=== PATIENT | male | born 1940 | race Caucasian/White ===

== ENCOUNTER 2017-12-27 11:32 | Emergency (ER) | payer MEDICARE, BC ==
[2017-12-27] MEDS ORDERED: Sodium Chloride 0.9% 1,000 ML IV ONE (11:46)
[2017-12-27] MEDS ORDERED: Sodium Chloride 0.9% 10 ML Syringe FLUSH PRN (11:46)
[2017-12-27 12:42] LABS: CHLORIDE,CL 104 mmol/L (98-107); SODIUM,NA 137 mmol/L (136-145)
--- NOTE | 2017-12-27 13:38 | EDM.PDOC ---
ED HPI GENERAL MEDICAL PROBLEM - General Chief Complaint: Head Injury Stated Complaint: DIZZINESS Time Seen by Provider: 12/27/17 11:41 Source of Information: Reports: Patient, Family History Limitations: Reports: No Limitations - History of Present Illness INITIAL COMMENTS - FREE TEXT/NARRATIVE: Patient is brought in by his after he may have passed out. He last remembers drinking prune juice and then the next he remembers he was on the floor next to one of the kitchen chairs. His did hear a loud sound hitting the floor. He has a hematoma to the left forehead. History of ICD placement, heart failure, copd, hypothyroidism. He denies headache, vision changes, still has some slight dizziness but nausea has resolved. No nausea at this time. He denies prior history of seizure disorders or any prior episodes of fainting. Onset: Today, Sudden - Related Data Allergies Allergy/AdvReac Type Severity Reaction Status Date / Time No Known Allergies Allergy Verified 12/27/17 11:52 Home Meds: Home Meds Acetaminophen [Tylenol] 325 - 650 mg PO Q4HR PRN 08/17/15 [History] Levothyroxine 200 mcg PO ACBREAKFAST 08/17/15 [History] Levothyroxine [Synthroid] 50 mcg PO ACBREAKFAST 08/17/15 [History] Losartan [Cozaar] 25 mg PO DAILY 08/17/15 [History] Sodium Chloride [Saline Nasal [place]] 3 spray NASBOTH 6XDAY PRN 08/17/15 [History ] Tamsulosin [Tamsulosin 24 Hr] 0.4 mg PO BEDTIME 08/17/15 [History] Montelukast [Singulair] 10 mg PO BEDTIME 09/13/15 [History] Omeprazole [Prilosec] 20 mg PO ACBREAKFAST 09/13/15 [History] Furosemide [Lasix] 60 mg PO DAILY 11/25/15 [History] Albuterol [Ventolin HFA] 2 puff INH Q4H PRN 12/27/17 [History] Albuterol/Ipratropium [DuoNeb 3.0-0.5 MG/3 ML] 3 ml NEB QID 12/27/17 [History] Aspirin 81 mg PO DAILY 12/27/17 [History] Carvedilol [Coreg] 12.5 mg PO BID 12/27/17 [History] Finasteride [Proscar] 5 mg PO DAILY 12/27/17 [History] Nitroglycerin [Nitrostat] 0.4 mg SL Q5M PRN 12/27/17 [History] Sennosides/Docusate Sodium [Senna-Docusate Sodium] 1 each PO BID 12/27/17 [ History] Spironolactone [Aldactone] 25 mg PO DAILY 12/27/17 [History] predniSONE [Prednisone] 5 mg PO DAILY 12/27/17 [History] Past Medical History HEENT History: Reports: Allergic Rhinitis, Sinusitis Cardiovascular History: Reports: CAD, Heart Failure, Hypertension, Pacemaker Respiratory History: Reports: Asthma, COPD Gastrointestinal History: Reports: GERD Genitourinary History: Reports: Prostate Disorder, Retention, Urinary Endocrine/Metabolic History: Reports: Hypothyroidism Oncologic (Cancer) History: Reports: Bladder - Past Surgical History Cardiovascular Surgical History: Reports: Pacer Musculoskeletal Surgical History: Reports: Hip Replacement Social & Family History - Tobacco Use Smoking Status *Q: Unknown Ever Smoked ED ROS GENERAL - Review of Systems Review Of Systems: See Below Constitutional: Reports: No Symptoms HEENT: Reports: No Symptoms Respiratory: Reports: No Symptoms Cardiovascular: Reports: No Symptoms Endocrine: Reports: No Symptoms GI/Abdominal: Reports: No Symptoms : Reports: No Symptoms Musculoskeletal: Reports: No Symptoms Skin: Reports: No Symptoms Neurological: Reports: Dizziness Psychiatric: Reports: No Symptoms Hematologic/Lymphatic: Reports: No Symptoms Immunologic: Reports: No Symptoms ED EXAM, HEAD INJURY - Physical Exam Exam: See Below Text/Narrative:: PLEASE USE ER NOTE FOR ADMISSION H AND P Exam Limited By: No Limitations General Appearance: Alert, WD/WN, No Apparent Distress Head: Normocephalic, Facial Ecchymosis (bruising to left forehead) Eyes: Bilateral Eye: EOMI, Normal Inspection, PERRL Ears: Normal External Exam, Normal Canal, Hearing Grossly Normal, Normal TMs Nose: Normal Inspection, Normal Mucousa, No Blood Throat/Mouth: Normal Inspection, Normal Lips, Normal Teeth, Normal Gums, Normal Oropharynx, Normal Voice, No Airway Compromise Neck: Non-Tender, Full Range of Motion, Normal Alignment, Normal Inspection Respiratory: No Respiratory Distress, Lungs Clear, Normal Breath Sounds, No Accessory Muscle Use, Chest Non-Tender Cardiovascular: Normal Peripheral Pulses, Regular Rate, Rhythm, No Edema, No Gallop, No JVD, No Murmur, No Rub GI/Abdominal Exam: Normal Bowel Sounds, Soft, Non-Tender, No Organomegaly, No Distention, No Abnormal Bruit, No Mass Back Exam: Full Range of Motion, Normal Inspection, NT Extremities: Normal Inspection, Normal Range of Motion, Non-Tender, No Pedal Edema, Normal Capillary Refill Neurologic: pet nutrition specialist II-XII nml As Tested, No Motor/Sensory Deficits, Alert, Normal Mood/Affect, Oriented x 3 Skin: Normal Color, Warm/Dry - [place] Coma Score Best Eye Response ([place]): (4) Open Spontaneously Best Verbal Response ([place]): (5) Oriented Best Motor Response ([place]): (6) Obeys Commands Course - Vital Signs Last Recorded V/S: Last Vital Signs Temp 36.2 C 12/27/17 11:35 Pulse 76 12/27/17 13:30 Resp 16 12/27/17 13:30 BP 118/78 12/27/17 13:30 Pulse Ox 97 12/27/17 13:30 Orthostatic Blood Pressure [ 118/65 Standing] Orthostatic Blood Pressure [ 135/71 Sitting] Orthostatic Blood Pressure [ 121/85 Supine] - Orders/Labs/Meds Orders: Active Orders 24 hr Category Date Time Status Patient Status [ADT] Routine ADT 12/27/17 14:25 Active EKG Documentation Completion [RC] URGENT Care 12/27/17 11:46 Active Chest 1V Frontal [CR] Stat Exams 12/27/17 11:54 Taken Head wo Cont [CT] Stat Exams 12/27/17 13:24 Taken Head wo Cont [CT] Stat Exams 12/28/17 07:00 Ordered UA W/MICROSCOPIC [URIN] Stat Lab 12/27/17 12:23 Ordered Saline Lock Insert [OM.PC] Routine Oth 12/27/17 11:46 Ordered Labs: Laboratory Tests 12/27/17 12/27/17 12/27/17 Range/Units 12:05 12:05 12:05 WBC 7.2 (4.0-10.0) x10^3/uL RBC 4.49 L (4.5-6.0) x10^6/uL Hgb 13.5 L (14.0-18.0) g/dL Hct 41.8 (40.0-52.0) % MCV 93.1 H (78.0-93.0) fL MCH 30.1 (26.0-32.0) pg MCHC 32.3 (32.0-36.0) g/dL RDW Coeff of Kody 13.6 (10.0-15.0) % Plt Count 153 (130-400) x10^3/uL Neut % (Auto) 75.0 (50.0-80.0) % Lymph % (Auto) 10.7 L (25.0-50.0) % Adams % (Auto) 7.1 (2.0-11.0) % Eos % (Auto) 6.4 H (0.0-4.0) % Baso % (Auto) 0.8 (0.2-1.2) % PT (9.6-11.4) SEC INR (2.0-3.5) Sodium 137 (136-145) mmol/L Potassium 3.9 (3.5-5.1) mmol/L Chloride 104 (98-107) mmol/L Carbon Dioxide 28 (21-32) mmol/L Anion Gap 8.9 L (10-20) mmol/L BUN 14 (7-18) mg/dL Creatinine 1.1 (0.70-1.30) mg/dL Est Cr Clr Drug Dosing TNP Estimated GFR (MDRD) > 60 Glucose 103 (74-106) mg/dL Calcium 8.2 L (8.5-10.1) mg/dL Corrected Calcium 8.68 (8.5-10.1) mg/dL Magnesium 2.2 (1.8-2.4) mg/dL Total Bilirubin 0.5 (0.2-1.0) mg/dL AST 13 L (15-37) U/L ALT 18 (16-63) U/L Alkaline Phosphatase 99 (46-116) U/L Troponin I 0.026 (<=0.056) ng/mL NT-Pro-B Natriuret Pep 1069 H (<=450) pg/mL Total Protein 6.3 L (6.4-8.2) g/dL Albumin 3.4 (3.4-5.0) g/dL Globulin 2.9 Albumin/Globulin Ratio 1.17 TSH, Ultra Sensitive 1.139 (0.358-3.74) uIU/mL Urine Color (YELLOW) Urine Appearance (CLEAR) Urine pH (5.0-8.0) Ur Specific [place] Urine Protein (NEGATIVE) mg/dL Urine Glucose (UA) (NEGATIVE) mg/dL Urine Ketones (NEGATIVE) mg/dL Urine Occult Blood (NEGATIVE) Urine Nitrite (NEGATIVE) Urine Bilirubin (NEGATIVE) Urine Urobilinogen (0.2) EU/dL Ur Leukocyte Esterase (NEGATIVE) Urine RBC (NOT SEEN) /HPF Urine WBC (NOT SEEN) /HPF Ur Squamous Epith Cells (NEGATIVE) /HPF Urine Bacteria (NEGATIVE) /HPF Urine Mucus (NEGATIVE) /LPF 12/27/17 12/27/17 Range/Units 12:05 12:23 WBC (4.0-10.0) x10^3/uL RBC (4.5-6.0) x10^6/uL Hgb (14.0-18.0) g/dL Hct (40.0-52.0) % MCV (78.0-93.0) fL MCH (26.0-32.0) pg MCHC (32.0-36.0) g/dL RDW Coeff of Kody (10.0-15.0) % Plt Count (130-400) x10^3/uL Neut % (Auto) (50.0-80.0) % Lymph % (Auto) (25.0-50.0) % [place] % (Auto) (2.0-11.0) % Eos % (Auto) (0.0-4.0) % Baso % (Auto) (0.2-1.2) % PT 10.1 (9.6-11.4) SEC INR 1.0 L (2.0-3.5) Sodium (136-145) mmol/L Potassium (3.5-5.1) mmol/L Chloride (98-107) mmol/L Carbon Dioxide (21-32) mmol/L Anion Gap (10-20) mmol/L BUN (7-18) mg/dL Creatinine (0.70-1.30) mg/dL Est Cr Clr Drug Dosing Estimated GFR (MDRD) Glucose (74-106) mg/dL Calcium (8.5-10.1) mg/dL Corrected Calcium (8.5-10.1) mg/dL Magnesium (1.8-2.4) mg/dL Total Bilirubin (0.2-1.0) mg/dL AST (15-37) U/L ALT (16-63) U/L Alkaline Phosphatase (46-116) U/L Troponin I (<=0.056) ng/mL NT-Pro-B Natriuret Pep (<=450) pg/mL Total Protein (6.4-8.2) g/dL Albumin (3.4-5.0) g/dL Globulin Albumin/Globulin Ratio TSH, Ultra Sensitive (0.358-3.74) uIU/mL Urine Color Light yellow (YELLOW) Urine Appearance Clear (CLEAR) Urine pH 6.5 (5.0-8.0) Ur Specific [place] 1.010 Urine Protein Negative (NEGATIVE) mg/dL Urine Glucose (UA) Negative (NEGATIVE) mg/dL Urine Ketones Negative (NEGATIVE) mg/dL Urine Occult Blood Moderate H (NEGATIVE) Urine Nitrite Negative (NEGATIVE) Urine Bilirubin Negative (NEGATIVE) Urine Urobilinogen 0.2 (0.2) EU/dL Ur Leukocyte Esterase Negative (NEGATIVE) Urine RBC 5-10 H (NOT SEEN) /HPF Urine WBC 0-5 (NOT SEEN) /HPF Ur Squamous Epith Cells Not seen (NEGATIVE) /HPF Urine Bacteria Not seen (NEGATIVE) /HPF Urine Mucus Not seen (NEGATIVE) /LPF Meds: Medications Discontinued Medications Generic Name Dose Route Start Last Admin Trade Name Freq PRN Reason Stop Dose Admin Sodium Chloride 1,000 mls @ 999 mls/hr 12/27/17 11:46 12/27/17 13:00 Normal Saline IV 12/27/17 12:46 999 mls/hr ONETIME ONE Administration Sodium Chloride 10 ml 12/27/17 11:46 Saline Flush FLUSH ASDIRECTED PRN Keep Vein Open - Re-Assessments/Exams Free Text/Narrative Re-Assessment/Exam: 12/27/17 15:13 Patient was initially discharged from the ER after images were taken. I did inform him that I would call if any abnormalities arose that I had not seen on his head CT. Dr. Malagon and I did discuss a 2-3 mm subdural hematoma and Aydin was called back to the hospital and admitted for observation overnight. Will repeat CT in the AM to assess stability of bleed. Departure - Departure Time of Disposition: 14:06 Disposition: Refer to Observation Condition: Good Clinical Impression: Syncope and collapse, Subdural hemorrhage - Discharge Information Instructions: Syncope, [id number] Referrals: Dallas Sosa MD [Primary Care Provider] - Forms: ED Department Discharge Additional Instructions: Please follow up with either DR. Sosa or one of his associates this week. You may need neurology and cardiology consultation to rule out these areas as causes for your syncope. Your labwork and diagnostics today were all within normal limits. EKG and Chest x-ray were not concerning. Please stay well hydrated. Make slow movements when changing positions and sit or stand without moving until any and all dizziness resolves. Please make sure to return to the ED with any other complaints or experiences of fainting. Call with any questions or concerns. - Problem List & Annotations (1) Subdural hemorrhage SNOMED Code(s): 25511335 Code(s): I62.00 - NONTRAUMATIC SUBDURAL HEMORRHAGE, UNSPECIFIED Status: Acute Priority: Medium - Problem List Review Problem List Initiated/Reviewed/Updated: Yes - My Orders Last 24 Hours: My Active Orders 12/27/17 11:46 EKG Documentation Completion [RC] URGENT Saline Lock Insert [OM.PC] Routine 12/27/17 11:54 Chest 1V Frontal [CR] Stat 12/27/17 12:23 UA W/MICROSCOPIC [URIN] Stat 12/27/17 13:24 Head wo Cont [CT] Stat 12/27/17 14:25 Patient Status [ADT] Routine 12/28/17 07:00 Head wo Cont [CT] Stat - Assessment/Plan Last 24 Hours: My Active Orders 12/27/17 11:46 EKG Documentation Completion [RC] URGENT Saline Lock Insert [OM.PC] Routine 12/27/17 11:54 Chest 1V Frontal [CR] Stat 12/27/17 12:23 UA W/MICROSCOPIC [URIN] Stat 12/27/17 13:24 Head wo Cont [CT] Stat 12/27/17 14:25 Patient Status [ADT] Routine 12/28/17 07:00 Head wo Cont [CT] Stat Assessment:: subdural hematoma Plan: 1. Subdural hematoma: continue to monitor vital signs neuro checks q 2hours repeat CT head in AM 2. Heart failure: resume home diuretics monitor input and output per shift 2 G sodium diet
[2017-12-27 14:08] VITALS: BP 118/78
== END 2017-12-27 14:06 | disposition other institution (70) ==
LOC: VM.ED 11:32
DX: S06.5X9A Traumatic subdural hemorrhage with loss of consciousness of unspecified duration, initial encounter (principal); I25.10 Atherosclerotic heart disease of native coronary artery without angina pectoris; I12.9 Hypertensive chronic kidney disease with stage 1 through stage 4 chronic kidney disease, or unspecified chronic kidney disease; I50.9 Heart failure, unspecified; J44.9 Chronic obstructive pulmonary disease, unspecified; Z79.899 Other long term (current) drug therapy; Z79.82 Long term (current) use of aspirin; Z95.0 Presence of cardiac pacemaker; W19.XXXA Unspecified fall, initial encounter
CPT/HCPCS: 36415; 70450; 71045; 80053; 81001; 83735; 83880; 84443; 84484; 85025; 85610; 93005; 96360; 99285; J7030

== ENCOUNTER 2017-12-27 14:25 | Observation (INO) | payer MEDICARE, BC ==
[2017-12-27] MEDS ORDERED: Ondansetron 4 MG Tab.DIS PO PRN (15:02)
[2017-12-27] MEDS ORDERED: Acetaminophen 325 MG Tab PO PRN (15:02)
[2017-12-27] MEDS ORDERED: Albuterol/Ipratropium 3.0-0.5 MG/3 ML Neb Soln NEB PRN (15:02)
[2017-12-27] MEDS ORDERED: Sodium Chloride 0.9% 10 ML Syringe FLUSH PRN (15:02)
[2017-12-27] MEDS ORDERED: Sodium Chloride 0.65% Nasal Spray 45 ML Bottle NASBOTH PRN (15:10)
[2017-12-27] MEDS ORDERED: Nitroglycerin 0.4 MG Tab.SL SL PRN (15:10)
[2017-12-27] MEDS ORDERED: Albuterol 8 GM Inhaler INH PRN (15:10)
[2017-12-27] MEDS ORDERED: Sodium Chloride 0.9% 1,000 ML IV SCH (15:15)
[2017-12-27] MEDS: Carvedilol 12.5 MG Tab PO SCH (19:30)
[2017-12-27] MEDS ORDERED: Montelukast 10 MG Tab PO SCH (20:00)
[2017-12-27] MEDS ORDERED: Tamsulosin 0.4 MG Cap.ER PO SCH (20:00)
[2017-12-28] MEDS ORDERED: Levothyroxine 100 MCG Tab PO SCH (07:00)
[2017-12-28] MEDS ORDERED: Levothyroxine 50 MCG Tab PO SCH (07:00)
[2017-12-28] MEDS ORDERED: Omeprazole 20 MG Cap.CR PO SCH (07:00)
[2017-12-28] MEDS ORDERED: Spironolactone 25 MG Tab PO SCH (08:00)
[2017-12-28] MEDS ORDERED: Losartan 25 MG Tab PO SCH (08:00)
[2017-12-28] MEDS ORDERED: predniSONE 10 MG Tab PO SCH (08:00)
[2017-12-28] MEDS ORDERED: Finasteride 5 MG Tab PO SCH (08:00)
[2017-12-28] MEDS ORDERED: Furosemide 40 MG Tab PO SCH (08:00)
[2017-12-28] MEDS: Carvedilol 12.5 MG Tab PO SCH (08:18)
[2017-12-28 10:24] VITALS: BP 130/77
--- NOTE | 2017-12-29 20:21 | PCM.DCSUM1 ---
Discharge Summary - Hospital Course Free Text/Narrative:: Pt. had been admitted by Hadley BARRETT following a fall. He struck his head, and was found to have a small subdural hematoma on CT. He was observed overnight with neuro checks. His CT was repeated the morning of discharge and was no larger in size. - Discharge Data Discharge Date: 12/28/17 Discharge Disposition: Home, Self-Care 01 Condition: Good - Discharge Diagnosis/Problem(s) (1) Subdural hemorrhage SNOMED Code(s): 73511688 ICD Code: I62.00 - NONTRAUMATIC SUBDURAL HEMORRHAGE, UNSPECIFIED Status: Acute Priority: Medium (2) Syncope and collapse SNOMED Code(s): 894808840 ICD Code: R55 - SYNCOPE AND COLLAPSE Status: Acute - Discharge Plan Home Medications: Home Meds Acetaminophen [Tylenol] 325 - 650 mg PO Q4HR PRN 08/17/15 [History] Levothyroxine 200 mcg PO ACBREAKFAST 08/17/15 [History] Levothyroxine [Synthroid] 50 mcg PO ACBREAKFAST 08/17/15 [History] Losartan [Cozaar] 25 mg PO DAILY 08/17/15 [History] Sodium Chloride [Saline Nasal [place]] 3 spray NASBOTH 6XDAY PRN 08/17/15 [History ] Tamsulosin [Flomax] 0.4 mg PO BEDTIME 08/17/15 [History] Montelukast [Singulair] 10 mg PO BEDTIME 09/13/15 [History] Omeprazole [Prilosec] 20 mg PO ACBREAKFAST 09/13/15 [History] Furosemide [Lasix] 60 mg PO DAILY 11/25/15 [History] Albuterol [Ventolin HFA] 2 puff INH Q4H PRN 12/27/17 [History] Albuterol/Ipratropium [DuoNeb 3.0-0.5 MG/3 ML] 3 ml NEB QID 12/27/17 [History] Aspirin 81 mg PO DAILY 12/27/17 [History] Carvedilol [Coreg] 12.5 mg PO BID 12/27/17 [History] Finasteride [Proscar] 5 mg PO DAILY 12/27/17 [History] Nitroglycerin [Nitrostat] 0.4 mg SL Q5M PRN 12/27/17 [History] Sennosides/Docusate Sodium [Senna-Docusate Sodium] 1 each PO BID 12/27/17 [ History] Spironolactone [Aldactone] 25 mg PO DAILY 12/27/17 [History] predniSONE [Prednisone] 5 mg PO DAILY 12/27/17 [History] Patient Handouts: Concussion, Adult, [id number], Subdural Hematoma - General Info Date of Service: 12/28/17 Functional Status: Reports: Pain Controlled - Review of Systems General: Reports: No Symptoms HEENT: Reports: No Symptoms Pulmonary: Reports: No Symptoms Cardiovascular: Reports: No Symptoms Gastrointestinal: Reports: No Symptoms Genitourinary: Reports: No Symptoms Musculoskeletal: Reports: No Symptoms Skin: Reports: No Symptoms Neurological: Reports: No Symptoms Psychiatric: Reports: No Symptoms - Patient Data Vitals - Most Recent: Last Vital Signs Temp 36.3 C 12/28/17 10:00 Pulse 67 12/28/17 10:00 Resp 16 12/28/17 10:00 BP 130/77 12/28/17 10:00 Pulse Ox 96 12/28/17 10:00 Weight - Most Recent: 107.501 kg Med Orders - Current: Current Medications Discontinued Medications Acetaminophen (Tylenol) 650 mg PO Q4H PRN PRN Reason: Pain (Mild 1-3)/fever Last Admin: 12/28/17 08:37 Dose: 650 mg Albuterol (Ventolin Hfa) 0 gm INH Q4H PRN PRN Reason: Shortness of Breath Last Admin: 12/27/17 21:38 Dose: 2 puff Albuterol/Ipratropium (Duoneb 3.0-0.5 Mg/3 Ml) 3 ml NEB Q4H PRN PRN Reason: dyspnea/wheezing Last Admin: 12/28/17 11:23 Dose: 3 ml Carvedilol (Coreg) 12.5 mg PO BID [facility] Last Admin: 12/28/17 08:18 Dose: 12.5 mg Finasteride (Proscar) 5 mg PO DAILY [facility] Last Admin: 12/28/17 08:18 Dose: 5 mg Furosemide (Lasix) 60 mg PO DAILY [facility] Last Admin: 12/28/17 08:18 Dose: 60 mg Sodium Chloride (Normal Saline) 1,000 mls @ 50 mls/hr IV ASDIRECTED [facility] Last Admin: 12/27/17 15:37 Dose: 50 mls/hr Levothyroxine Sodium (Synthroid) 200 mcg PO ACBREAKFAST [facility] Last Admin: 12/28/17 06:13 Dose: 200 mcg Levothyroxine Sodium (Synthroid) 50 mcg PO [id number] [facility] Last Admin: 12/28/17 06:13 Dose: 50 mcg Losartan Potassium (Cozaar) 25 mg PO DAILY [facility] Last Admin: 12/28/17 08:18 Dose: 25 mg Montelukast Sodium (Singulair) 10 mg PO BEDTIME [facility] Last Admin: 12/27/17 19:30 Dose: 10 mg Nitroglycerin (Nitrostat) 0.4 mg SL Q5M PRN PRN Reason: Chest Pain Omeprazole (Omeprazole) 20 mg PO ACBREAKFAST [facility] Last Admin: 12/28/17 06:13 Dose: 20 mg Ondansetron HCl (Zofran Odt) 4 mg PO Q6H PRN PRN Reason: nausea, able to take PO Prednisone (Prednisone) 5 mg PO DAILY [facility] Last Admin: 12/28/17 08:18 Dose: 5 mg Senna/Docusate Sodium (Senna Plus) 1 tab PO BID PRN PRN Reason: Constipation Sodium Chloride (Saline Flush) 10 ml FLUSH ASDIRECTED PRN PRN Reason: Keep Vein Open Sodium Chloride ([place] Nasal [place]) 0 ml NASBOTH 6XDAY PRN PRN Reason: Congestion Spironolactone (Aldactone) 25 mg PO DAILY [facility] Last Admin: 12/28/17 08:18 Dose: 25 mg Tamsulosin HCl (Flomax) 0.4 mg PO BEDTIME [facility] Last Admin: 12/27/17 19:30 Dose: 0.4 mg - Exam General: Reports: Alert, Oriented HEENT: Reports: Pupils Equal, Pupils Reactive, EOMI, Mucous Membr. Moist/[place]ck: Reports: Supple Lungs: Reports: Clear to Auscultation, Normal Respiratory Effort Cardiovascular: Reports: Regular Rate, Regular Rhythm GI/Abdominal Exam: Normal Bowel Sounds, Soft, Non-Tender, No Organomegaly, No Distention, No Abnormal Bruit, No Mass, Pelvis Stable (Male) Exam: No Hernia, Normal Inspection, Normal Prostate, Circumcised Rectal (Males) Exam: Deferred Back Exam: Reports: Normal Inspection, Full Range of Motion Extremities: Normal Inspection, Normal Range of Motion, Non-Tender, No Pedal Edema, Normal Capillary Refill Skin: Reports: Warm, Dry, Intact Wound/Incisions: Reports: Healing Well Neurological: Reports: No New Focal Deficit Psy/Mental Status: Reports: Alert, Normal Affect, Normal Mood *Q Meaningful Use (DIS) - VTE *Q VTE Anticoagulation Contraindications: Medical/Procedure Contrai
== END 2017-12-28 12:10 | disposition home or self-care (01) ==
LOC: VM.MS 14:25
PROVIDERS: ADMIT Nurse Practitioner Family; ATTEND Nurse Practitioner Family
DX: S06.5X9A Traumatic subdural hemorrhage with loss of consciousness of unspecified duration, initial encounter (principal); W19.XXXA Unspecified fall, initial encounter; Z79.899 Other long term (current) drug therapy; I25.10 Atherosclerotic heart disease of native coronary artery without angina pectoris; I12.9 Hypertensive chronic kidney disease with stage 1 through stage 4 chronic kidney disease, or unspecified chronic kidney disease; I50.9 Heart failure, unspecified; Z79.82 Long term (current) use of aspirin; Z95.0 Presence of cardiac pacemaker
CPT/HCPCS: 36415; 70450; 71045; 80053; 81001; 83735; 83880; 84443; 84484; 85025; 85610; 93005; 96360; 96361; 99285; A9270; G0378; J7030

== ENCOUNTER 2020-04-13 11:19 | Emergency (ER) | payer MEDICARE, BC ==
[2020-04-13] MEDS ORDERED: Sodium Chloride 0.9% 1,000 ML IV ONE (11:34)
[2020-04-13 12:13] LABS: ANION GAP 12.2 mmol/L (10-20); CHLORIDE,CL 104 mmol/L (98-107); SODIUM,NA 141 mmol/L (136-145)
[2020-04-13] MEDS ORDERED: Aspirin 81 MG Tab.Chew PO ONE (12:18)
--- NOTE | 2020-04-13 12:46 | EDM.PDOC ---
ED HPI GENERAL MEDICAL PROBLEM - General Chief Complaint: General Stated Complaint: LOW BLOOD PRESSURE Time Seen by Provider: 04/13/20 11:25 Source of Information: Reports: Patient - History of Present Illness INITIAL COMMENTS - FREE TEXT/NARRATIVE: Patient comes into the emergency department with complaint of dizziness and weakness. Patient states that the dizziness and weakness started earlier today prior to taking his morning medications. His took his blood pressure and states that the blood pressure was less than 90 systolic and she called the [facility] nurse line. They suggested that the patient be evaluated the emergency department. The patient did have an egg prior to arrival and states that that did not help his symptoms at all. Patient states upon arrival he still feels dizzy and weak with no other symptoms involved. His blood pressure upon arrival to emergency department was 118 systolic. Patient denies any active chest pain, shortness of breath, blurred vision, headache, peripheral edema, or GI upset. Patient states the dizziness and weakness has continued all morning has not progressed or gotten any better when lying down or with activity. Patient also declines any recent exposure to COVID-19 that he is aware of. He also has not been out in the community or in large crowds. Location: Reports: Other Severity: Mild Improves with: Reports: None Worsens with: Reports: None Associated Symptoms: Reports: No Other Symptoms - Related Data Allergies Allergy/AdvReac Type Severity Reaction Status Date / Time No Known Allergies Allergy Verified 04/13/20 12:47 Home Meds: Home Meds Acetaminophen [Tylenol] 325 - 650 mg PO Q4HR PRN 08/17/15 [History] Levothyroxine 200 mcg PO ACBREAKFAST 08/17/15 [History] Levothyroxine [Synthroid] 50 mcg PO ACBREAKFAST 08/17/15 [History] Sodium Chloride [Saline Nasal [place]] 3 spray NASBOTH 6XDAY PRN 08/17/15 [History] Tamsulosin [Flomax] 0.4 mg PO BEDTIME 08/17/15 [History] Montelukast [Singulair] 10 mg PO BEDTIME 09/13/15 [History] Omeprazole [Prilosec] 20 mg PO ACBREAKFAST 09/13/15 [History] Albuterol [Ventolin HFA] 2 puff INH Q4H PRN 12/27/17 [History] Albuterol/Ipratropium [DuoNeb 3.0-0.5 MG/3 ML] 3 ml NEB QID 12/27/17 [History] Aspirin 81 mg PO DAILY 12/27/17 [History] Finasteride [Proscar] 5 mg PO DAILY 12/27/17 [History] Nitroglycerin [Nitrostat] 0.4 mg SL Q5M PRN 12/27/17 [History] Sennosides/Docusate Sodium [Senna-Docusate Sodium] 1 each PO BID 12/27/17 [History] Spironolactone [Aldactone] 25 mg PO DAILY 12/27/17 [History] predniSONE [Prednisone] 5 mg PO DAILY 12/27/17 [History] Metoprolol Tartrate 0.5 tab PO BID 07/10/18 [History] Past Medical History HEENT History: Reports: Allergic Rhinitis, Sinusitis Cardiovascular History: Reports: CAD, Heart Failure, Hypertension, Pacemaker Respiratory History: Reports: Asthma, COPD Gastrointestinal History: Reports: GERD Genitourinary History: Reports: Prostate Disorder, Retention, Urinary Endocrine/Metabolic History: Reports: Hypothyroidism Oncologic (Cancer) History: Reports: Bladder - Past Surgical History Cardiovascular Surgical History: Reports: Pacer Musculoskeletal Surgical History: Reports: Hip Replacement Social & Family History - Family History Family Medical History: Noncontributory - Caffeine Use Caffeine Use: Reports: Coffee, Soda ED ROS GENERAL - Review of Systems Review Of Systems: Comprehensive ROS is negative, except as noted in HPI. Constitutional: Denies: Fever, Chills, Malaise, Weakness, Fatigue, Night Sweats, Diaphoresis, Decreased Appetite HEENT: Reports: No Symptoms Respiratory: Reports: No Symptoms Cardiovascular: Reports: No Symptoms Endocrine: Reports: No Symptoms GI/Abdominal: Reports: No Symptoms : Reports: No Symptoms Musculoskeletal: Reports: No Symptoms Skin: Reports: No Symptoms Neurological: Reports: Dizziness Psychiatric: Reports: No Symptoms Hematologic/Lymphatic: Reports: No Symptoms Immunologic: Reports: No Symptoms ED EXAM, GENERAL - Physical Exam Exam: See Below Exam Limited By: No Limitations General Appearance: Alert, WD/WN, No Apparent Distress Eye Exam: Bilateral Eye: EOMI, PERRL Head: Atraumatic, Normocephalic Neck: Normal Inspection, Supple, Non-Tender, Full Range of Motion Respiratory/Chest: No Respiratory Distress, Lungs Clear, Normal Breath Sounds, No Accessory Muscle Use, Chest Non-Tender Cardiovascular: Normal Peripheral Pulses, Other (paced rhythm ) GI/Abdominal: Normal Bowel Sounds, Soft, Non-Tender, No Distention Back Exam: Normal Inspection, Full Range of Motion Extremities: Normal Inspection, Normal Range of Motion, Non-Tender, No Pedal Edema, Normal Capillary Refill Neurological: Alert, Oriented, Normal Gait Psychiatric: Normal Affect, Normal Mood Skin Exam: Warm, Dry, Intact, Normal Color, No Rash Course - Orders/Labs/Meds Orders: Active Orders 24 hr Category Date Time Status EKG Documentation Completion [RC] AM Care 04/13/20 11:34 Active Labs: Laboratory Tests 04/13/20 04/13/20 Range/Units 11:47 11:47 WBC 6.6 (4.0-10.0) x10^3/uL RBC 4.17 L (4.5-6.0) x10^6/uL Hgb 12.7 L (14.0-18.0) g/dL Hct 39.2 L (40.0-52.0) % MCV 94.0 H (78.0-93.0) fL MCH 30.5 (26.0-32.0) pg MCHC 32.4 (32.0-36.0) g/dL RDW Coeff of Kody 13.0 (10.0-15.0) % Plt Count 150 (130-400) x10^3/uL Neut % (Auto) 65.2 (50.0-80.0) % Lymph % (Auto) 18.6 L (25.0-50.0) % Rains % (Auto) 11.1 H (2.0-11.0) % Eos % (Auto) 4.5 H (0.0-4.0) % Baso % (Auto) 0.6 (0.2-1.2) % Sodium 141 (136-145) mmol/L Potassium 4.2 (3.5-5.1) mmol/L Chloride 104 (98-107) mmol/L Carbon Dioxide 29 (21-32) mmol/L Anion Gap 12.2 (10-20) mmol/L BUN 24 H (7-18) mg/dL Creatinine 1.2 (0.70-1.30) mg/dL Est Cr Clr Drug Dosing TNP Estimated GFR (MDRD) 59 Glucose 86 (74-106) mg/dL Calcium 8.3 L (8.5-10.1) mg/dL Corrected Calcium 8.94 (8.5-10.1) mg/dL Total Bilirubin 0.5 (0.2-1.0) mg/dL AST 16 (15-37) U/L ALT 25 (16-63) U/L Alkaline Phosphatase 95 (46-116) U/L Troponin I 0.073 H* (<=0.056) ng/mL Total Protein 6.0 L (6.4-8.2) g/dL Albumin 3.2 L (3.4-5.0) g/dL Globulin 2.8 g/dL Albumin/Globulin Ratio 1.14 Meds: Medications Discontinued Medications Generic Name Dose Route Start Last Admin Trade Name Freq PRN Reason Stop Dose Admin Aspirin 324 mg 04/13/20 12:18 04/13/20 12:28 Aspirin PO 04/13/20 12:19 324 mg ONETIME ONE Administration Sodium Chloride 1,000 mls @ 1,000 mls/hr 04/13/20 11:34 04/13/20 11:50 Normal Saline IV 04/13/20 12:33 1,000 mls/hr ONETIME ONE Administration Departure - Departure Time of Disposition: 12:40 Disposition: DC/Tfer to Acute Hospital 02 Condition: Good Clinical Impression: Dizziness, Weakness, Elevated troponin, Hypotension - Discharge Information *PRESCRIPTION DRUG MONITORING PROGRAM REVIEWED*: Not Applicable *COPY OF PRESCRIPTION DRUG MONITORING REPORT IN PATIENT NICK: Not Applicable Referrals: Norris Gunn PA-C [Primary Care Provider] - Forms: Interfacility Transfer EMTALA, ED Department Discharge - My Orders Last 24 Hours: My Active Orders 04/13/20 11:34 EKG Documentation Completion [RC] AM - Assessment/Plan Last 24 Hours: My Active Orders 04/13/20 11:34 EKG Documentation Completion [RC] AM Assessment:: 1. dizziness 2. weakness 3. elevated troponin 4. hypotension Plan: 1. Labs completed in the ER. Results reviewed with the patient 2. IV initiated in the emergency department 3. IV fluids provided 4. Chest xray completed in ER. Results reviewed with the patient 5. ASA 324mg chewable was given to the patient 6. EKG was completed in ER. Results reviewed with the patient 7. Patient and nursing staff was updated regarding the plan of care 8. Consultation completed with [facility] however, they do not have availability at this time. Consultation completed with [facility]. Dr. Salmeron accepted care of the patient. Patient will be transported via ALS. 9. Patient and family are agreeable to the above plan of care 10. All questions and concerns were addressed with the patient and family prior to discharge
--- NOTE | 2020-04-13 13:00 | CR ---
[id number] RAD/RAD Chest PA or AP 1V EXAM: RAD Chest PA or AP 1V INDICATION: DIZZINESS. COMPARISON: December 27, 2017. DISCUSSION: Left chest wall cardiac conduction device. Cardiomediastinal silhouette is normal in size and contour. No infiltrate, effusion, pneumothorax, or edema. IMPRESSION: No acute cardiopulmonary abnormality. Eddie Jolly DO 04/13/20 1300 Thank you for allowing us to participate in the care of your patient.
[2020-04-13 15:56] VITALS: PULSE 60
[2020-04-13 16:02] VITALS: BP 118/67
== END 2020-04-13 13:20 | disposition short-term general hospital (02) ==
LOC: VM.ED 11:19
DX: I95.9 Hypotension, unspecified (principal); R79.89 Other specified abnormal findings of blood chemistry; I11.0 Hypertensive heart disease with heart failure; I50.9 Heart failure, unspecified; I25.10 Atherosclerotic heart disease of native coronary artery without angina pectoris; J44.9 Chronic obstructive pulmonary disease, unspecified; Z79.82 Long term (current) use of aspirin; Z79.899 Other long term (current) drug therapy
CPT/HCPCS: 71045; 80053; 84484; 85025; 93005; 96360; 99284; 99285-25; A9270-GY; J7030

== ENCOUNTER 2020-04-20 16:33 | Emergency (ER) | payer MEDICARE, BC ==
[2020-04-20] MEDS ORDERED: Sodium Chloride 0.9% 10 ML Syringe FLUSH PRN (16:57)
[2020-04-20] MEDS ORDERED: Sodium Chloride 0.9% 250 ML IV SCH (17:00)
--- NOTE | 2020-04-20 17:39 | EDM.PDOC ---
ED HPI GENERAL MEDICAL PROBLEM - General Chief Complaint: Cardiovascular Problem Stated Complaint: LOW BLOOD PRESSURE Time Seen by Provider: 04/20/20 16:33 Source of Information: Reports: Patient History Limitations: Reports: No Limitations - History of Present Illness INITIAL COMMENTS - FREE TEXT/NARRATIVE: Patient comes into the emergency department with complaints of hypotension. Patient was recently hospitalized for UTI and did experience some hypotension. Patient was discharged with no residual effects and was instructed to continue to take his blood pressure on a daily basis. Patient has been taking his blood pressure daily. Today after not eating since breakfast and had a decrease in oral intake of liquids patient did become dizzy and lightheaded when he was st anding outside for long period of time and his took his blood pressure and found that his blood pressure was systolically in the 70s-80s.After about 10 minutes his blood pressure did begin to rise but it did not get greater than 90 systolic. Patient was feeling better with his dizziness but they wanted to have his blood pressure evaluated. Patient is currently asymptomatic upon arrival to the emergency department and states that he feels back to his baseline. Onset: Today Improves with: Reports: None Worsens with: Reports: None Associated Symptoms: Reports: No Other Symptoms - Related Data Allergies Allergy/AdvReac Type Severity Reaction Status Date / Time No Known Allergies Allergy Verified 04/13/20 12:47 Home Meds: Home Meds Acetaminophen [Tylenol] 325 - 650 mg PO Q4HR PRN 08/17/15 [History] Levothyroxine 200 mcg PO ACBREAKFAST 08/17/15 [History] Levothyroxine [Synthroid] 50 mcg PO ACBREAKFAST 08/17/15 [History] Sodium Chloride [Saline Nasal [employer]] 3 spray NASBOTH 6XDAY PRN 08/17/15 [History] Tamsulosin [Flomax] 0.4 mg PO BEDTIME 08/17/15 [History] Montelukast [Singulair] 10 mg PO BEDTIME 09/13/15 [History] Omeprazole [Prilosec] 20 mg PO ACBREAKFAST 09/13/15 [History] Albuterol [Ventolin HFA] 2 puff INH Q4H PRN 12/27/17 [History] Albuterol/Ipratropium [DuoNeb 3.0-0.5 MG/3 ML] 3 ml NEB QID 12/27/17 [History] Aspirin 81 mg PO DAILY 12/27/17 [History] Finasteride [Proscar] 5 mg PO DAILY 12/27/17 [History] Nitroglycerin [Nitrostat] 0.4 mg SL Q5M PRN 12/27/17 [History] Sennosides/Docusate Sodium [Senna-Docusate Sodium] 1 each PO BID 12/27/17 [History] Spironolactone [Aldactone] 25 mg PO DAILY 12/27/17 [History] predniSONE [Prednisone] 5 mg PO DAILY 12/27/17 [History] Metoprolol Tartrate 0.5 tab PO BID 07/10/18 [History] Past Medical History HEENT History: Reports: Allergic Rhinitis, Sinusitis Cardiovascular History: Reports: CAD, Heart Failure, Hypertension, Pacemaker Respiratory History: Reports: Asthma, COPD Gastrointestinal History: Reports: GERD Genitourinary History: Reports: Prostate Disorder, Retention, Urinary Endocrine/Metabolic History: Reports: Hypothyroidism Oncologic (Cancer) History: Reports: Bladder - Past Surgical History Cardiovascular Surgical History: Reports: Pacer Musculoskeletal Surgical History: Reports: Hip Replacement Social & Family History - Family History Family Medical History: Noncontributory - Caffeine Use Caffeine Use: Reports: Coffee, Soda ED ROS GENERAL - Review of Systems Review Of Systems: Comprehensive ROS is negative, except as noted in HPI. Constitutional: Reports: No Symptoms HEENT: Reports: No Symptoms Respiratory: Reports: No Symptoms Cardiovascular: Reports: No Symptoms Endocrine: Reports: No Symptoms GI/Abdominal: Reports: No Symptoms : Reports: No Symptoms Musculoskeletal: Reports: No Symptoms Skin: Reports: No Symptoms Neurological: Reports: No Symptoms Psychiatric: Reports: No Symptoms Hematologic/Lymphatic: Reports: No Symptoms ED EXAM, GENERAL - Physical Exam Exam: See Below Exam Limited By: No Limitations General Appearance: Alert, WD/WN, No Apparent Distress Eye Exam: Bilateral Eye: EOMI, PERRL Head: Atraumatic, Normocephalic Neck: Normal Inspection, Supple, Non-Tender, Full Range of Motion Respiratory/Chest: No Respiratory Distress, Lungs Clear, Normal Breath Sounds, No Accessory Muscle Use, Chest Non-Tender Cardiovascular: Normal Peripheral Pulses, Regular Rate, Rhythm, No Edema, No Murmur, No Rub Peripheral Pulses: 4+: Radial (L), Radial (R) GI/Abdominal: Normal Bowel Sounds, Soft, Non-Tender, No Abnormal Bruit Back Exam: Normal Inspection, Full Range of Motion Extremities: Normal Inspection, Normal Range of Motion, Non-Tender, Normal Capillary Refill Neurological: Alert, Oriented, Normal Cognition, Normal Gait Skin Exam: Warm, Dry, Intact, Normal Color Course - Orders/Labs/Meds Orders: Active Orders 24 hr Category Date Time Status Sodium Chloride 0.9% [Normal Saline] 250 ml Med 04/20/20 17:00 Active IV ASDIRECTED Sodium Chloride 0.9% [Saline Flush] Med 04/20/20 16:57 Active 10 ml FLUSH ASDIRECTED PRN Peripheral IV Insertion Adult [OM.PC] Stat Oth 04/20/20 16:57 Ordered Medication Orders Sodium Chloride (Normal Saline) 250 mls @ 250 mls/hr IV ASDIRECTED [place] Sodium Chloride (Saline Flush) 10 ml FLUSH ASDIRECTED PRN PRN Reason: Keep Vein Open Meds: Medications Generic Name Dose Route Start Last Admin Trade Name Freq PRN Reason Stop Dose Admin Sodium Chloride 250 mls @ 250 mls/hr 04/20/20 17:00 Normal Saline IV ASDIRECTED [place] Sodium Chloride 10 ml 04/20/20 16:57 Saline Flush FLUSH ASDIRECTED PRN Keep Vein Open Departure - Departure Time of Disposition: 17:40 Disposition: Home, Self-Care 01 Condition: Good Clinical Impression: Orthostatic hypotension, Dehydration Instructions: Dehydration, Elderly, [id number], Orthostatic Hypotension Referrals: Norris Gunn PA-C [Primary Care Provider] - Additional Instructions: 1. rest 2. increase your water intake 3. Continue all at home medications 4. Activity and diet as tolerated 5. Can take over the counter Tylenol for any pain or discomfort 6. Follow up with PCP if symptoms continue, return, or progress 7. Call with any questions or concerns - My Orders Last 24 Hours: My Active Orders 04/20/20 16:57 Sodium Chloride 0.9% [Saline Flush] 10 ml FLUSH ASDIRECTED PRN Peripheral IV Insertion Adult [OM.PC] Stat 04/20/20 17:00 Sodium Chloride 0.9% [Normal Saline] 250 ml IV ASDIRECTED - Assessment/Plan Last 24 Hours: My Active Orders 04/20/20 16:57 Sodium Chloride 0.9% [Saline Flush] 10 ml FLUSH ASDIRECTED PRN Peripheral IV Insertion Adult [OM.PC] Stat 04/20/20 17:00 Sodium Chloride 0.9% [Normal Saline] 250 ml IV ASDIRECTED Assessment:: 1. Orthostatic hypotension 2. Dehydration Plan: 1. Food was provided since the patient has not eaten since breakfast 2. IV initiated in the emergency department 3. IV fluids provided 4. Patient and nursing staff was updated regarding the plan of care 5. Education provided the patient regarding activity, diet, rest, [id number] medication modalities, and follow-up care was provided 6. Patient and family are agreeable to the above plan of care 7. All questions and concerns were addressed with the patient and family prior to discharge
[2020-04-20 17:46] VITALS: BP 128/76; PULSE 61
== END 2020-04-20 18:20 | disposition home or self-care (01) ==
LOC: VM.ED 16:33
DX: E86.0 Dehydration (principal); I95.1 Orthostatic hypotension; I11.0 Hypertensive heart disease with heart failure; I50.9 Heart failure, unspecified; I25.10 Atherosclerotic heart disease of native coronary artery without angina pectoris; J44.9 Chronic obstructive pulmonary disease, unspecified; K21.9 Gastro-esophageal reflux disease without esophagitis; E03.9 Hypothyroidism, unspecified; Z95.0 Presence of cardiac pacemaker; Z79.82 Long term (current) use of aspirin; Z79.899 Other long term (current) drug therapy
CPT/HCPCS: 99284

== ENCOUNTER 2020-08-28 02:55 | Emergency (ER) | payer MEDICARE, BC ==
--- NOTE | 2020-08-28 03:32 | EDM.PDOC ---
ED HPI GENERAL MEDICAL PROBLEM - General Chief Complaint: Laceration Stated Complaint: Skin tear/laceration to right hand/wrist Time Seen by Provider: 08/28/20 03:18 Source of Information: Reports: Patient - History of Present Illness INITIAL COMMENTS - FREE TEXT/NARRATIVE: Aydin is a 80 y/o male who comes to the ER tonight after he fell off of his couch. he was sleeping on the couch and then turned over and he fell to the ground. He hit his right hand on something when he fell and sustained a large skin tear. It was bleeding quite a bit home. - Related Data Allergies Allergy/AdvReac Type Severity Reaction Status Date / Time No Known Allergies Allergy Verified 04/13/20 12:47 Home Meds: Home Meds Acetaminophen [Tylenol] 325 - 650 mg PO Q4HR PRN 08/17/15 [History] Levothyroxine 200 mcg PO ACBREAKFAST 08/17/15 [History] Levothyroxine [Synthroid] 50 mcg PO ACBREAKFAST 08/17/15 [History] Sodium Chloride [Saline Nasal [place]] 3 spray NASBOTH 6XDAY PRN 08/17/15 [History] Tamsulosin [Flomax] 0.4 mg PO BEDTIME 08/17/15 [History] Montelukast [Singulair] 10 mg PO BEDTIME 09/13/15 [History] Omeprazole [Prilosec] 20 mg PO ACBREAKFAST 09/13/15 [History] Albuterol [Ventolin HFA] 2 puff INH Q4H PRN 12/27/17 [History] Albuterol/Ipratropium [DuoNeb 3.0-0.5 MG/3 ML] 3 ml NEB QID 12/27/17 [History] Aspirin 81 mg PO DAILY 12/27/17 [History] Finasteride [Proscar] 5 mg PO DAILY 12/27/17 [History] Nitroglycerin [Nitrostat] 0.4 mg SL Q5M PRN 12/27/17 [History] Sennosides/Docusate Sodium [Senna-Docusate Sodium] 1 each PO BID 12/27/17 [History] Spironolactone [Aldactone] 25 mg PO DAILY 12/27/17 [History] predniSONE [Prednisone] 5 mg PO DAILY 12/27/17 [History] Metoprolol Tartrate 0.5 tab PO BID 07/10/18 [History] Past Medical History HEENT History: Reports: Allergic Rhinitis, Sinusitis Cardiovascular History: Reports: CAD, Heart Failure, Hypertension, Pacemaker Respiratory History: Reports: Asthma, COPD Gastrointestinal History: Reports: GERD Genitourinary History: Reports: Prostate Disorder, Retention, Urinary Endocrine/Metabolic History: Reports: Hypothyroidism Oncologic (Cancer) History: Reports: Bladder - Past Surgical History Cardiovascular Surgical History: Reports: Pacer Musculoskeletal Surgical History: Reports: Hip Replacement Social & Family History - Family History Family Medical History: No Pertinent Family History - Caffeine Use Caffeine Use: Reports: Coffee, Soda ED ROS GENERAL - Review of Systems Review Of Systems: See Below Constitutional: Reports: No Symptoms HEENT: Reports: No Symptoms Respiratory: Reports: No Symptoms Cardiovascular: Reports: No Symptoms Endocrine: Reports: No Symptoms GI/Abdominal: Reports: No Symptoms : Reports: No Symptoms Musculoskeletal: Reports: No Symptoms Skin: Reports: Other (skin tear right hand) ED EXAM, SKIN/RASH Exam: See Below General Appearance: Alert, WD/WN, No Apparent Distress (Elderly male.) Eye Exam: Left Eye: Other (Mild brusing to left eye region) Ears: Hearing Grossly Normal Nose: Normal Inspection Throat/Mouth: Normal Voice Head: Atraumatic Respiratory/Chest: No Respiratory Distress GI/Abdominal: Soft (Male) Exam: Deferred Rectal (Males) Exam: Deferred Back Exam: Normal Inspection Extremities: Normal Capillary Refill, Other (note 5cm x 4cm skin tear to anterior aspect of right hand, bruising under skin noted) Neurological: Alert, Oriented, CN II-XII Intact, Normal Gait Skin: Warm, Dry Course - Vital Signs Text/Narrative:: 0318 The patient was seen by the [facility]. The skin tear was repaired. See Procedure Note. The patient and his were given discharge instructions and he left the ER in stable condition. Procedure Note Laceration Repair Following verbal consent of the patient, risks, benefits, and alternatives were reviewed. The wound on the right hand was prepped with Saline. Dermabond was used for wound closure. Dressing was applied. Wound care instructions were reviewed. The patient tolerated the procedure well. Tetanus was not given today. Departure - Departure Time of Disposition: 03:26 Disposition: Home, Self-Care 01 Condition: Good Clinical Impression: Skin tear of right hand without complication Qualifiers: Encounter type: initial encounter Qualified Code(s): S61.411A - Laceration without foreign body of right hand, initial encounter - Discharge Information Instructions: Sutures, [place], or Adhesive Wound Closure, [id number] Additional Instructions: -Watch for infection -Keep the wound dry and covered for the first 24 hours, then you may wash it lightly with soap and water but do not soak in a tub. -Use acetaminophen as needed for pain -Follow up in the ER or with your PCP for any further concerns
[2020-08-28 03:59] VITALS: BP 132/85; PULSE 64
== END 2020-08-28 03:39 | disposition home or self-care (01) ==
LOC: VM.ED 02:55
DX: S61.411A Laceration without foreign body of right hand, initial encounter (principal); S00.83XA Contusion of other part of head, initial encounter; I11.0 Hypertensive heart disease with heart failure; I50.9 Heart failure, unspecified; I25.10 Atherosclerotic heart disease of native coronary artery without angina pectoris; J44.9 Chronic obstructive pulmonary disease, unspecified; K21.9 Gastro-esophageal reflux disease without esophagitis; E03.9 Hypothyroidism, unspecified; Z79.899 Other long term (current) drug therapy; Z79.82 Long term (current) use of aspirin; W08.XXXA Fall from other furniture, initial encounter
CPT/HCPCS: 12001; 12004; 99282-25; 99283

== ENCOUNTER 2020-11-17 10:05 | Emergency (ER) | payer MEDICARE, BC ==
--- NOTE | 2020-11-17 11:10 | EDM.PDOC ---
ED HPI GENERAL MEDICAL PROBLEM - General Chief Complaint: Cardiovascular Problem Stated Complaint: LOW BLOOD PRESSURE Time Seen by Provider: 11/17/20 10:10 Source of Information: Reports: Patient, Family History Limitations: Reports: No Limitations - History of Present Illness INITIAL COMMENTS - FREE TEXT/NARRATIVE: Patient comes in with complaints of low blood pressure, head feels "foggy". No syncope. Has had hypotension in the past. History of pacemaker. reports he had gained 6 pounds in 5 days last week, which prompted a call to the CHF clinic in [place]. On Wednesday, in addition to his 20 mg of lasix, he was instructed to take an additional 80 mg. He did diurese this extra weight on Wednesday. Drinks 2-3 glasses of water daily. Blood pressure in the 80's sys tolic this am. They called ask a nurse and were told to go into the ED for evaluation. Onset: Today, Sudden Duration: Intermittent Severity: Mild Improves with: Reports: None Worsens with: Reports: None Associated Symptoms: Reports: No Other Symptoms - Related Data Allergies Allergy/AdvReac Type Severity Reaction Status Date / Time No Known Allergies Allergy Verified 11/17/20 11:18 Home Meds: Home Meds Acetaminophen [Tylenol] 325 - 650 mg PO Q4HR PRN 08/17/15 [History] Levothyroxine 200 mcg PO ACBREAKFAST 08/17/15 [History] Levothyroxine [Synthroid] 50 mcg PO ACBREAKFAST 08/17/15 [History] Sodium Chloride [Saline Nasal [place]] 3 spray NASBOTH 6XDAY PRN 08/17/15 [History] Tamsulosin [Flomax] 0.4 mg PO BEDTIME 08/17/15 [History] Montelukast [Singulair] 10 mg PO BEDTIME 09/13/15 [History] Omeprazole [Prilosec] 20 mg PO ACBREAKFAST 09/13/15 [History] Albuterol [Ventolin HFA] 2 puff INH Q4H PRN 12/27/17 [History] Albuterol/Ipratropium [DuoNeb 3.0-0.5 MG/3 ML] 3 ml NEB QID 12/27/17 [History] Aspirin 81 mg PO DAILY 12/27/17 [History] Finasteride [Proscar] 5 mg PO DAILY 12/27/17 [History] Nitroglycerin [Nitrostat] 0.4 mg SL Q5M PRN 12/27/17 [History] Sennosides/Docusate Sodium [Senna-Docusate Sodium] 1 each PO BID 12/27/17 [History] Spironolactone [Aldactone] 25 mg PO DAILY 12/27/17 [History] predniSONE [Prednisone] 5 mg PO DAILY 12/27/17 [History] Metoprolol Tartrate 0.5 tab PO BID 07/10/18 [History] Donepezil HCl 10 mg PO BEDTIME 08/28/20 [History] Losartan Potassium 100 mg PO DAILY 08/28/20 [History] Past Medical History HEENT History: Reports: Allergic Rhinitis, Sinusitis Cardiovascular History: Reports: CAD, Heart Failure, Hypertension, Pacemaker Respiratory History: Reports: Asthma, COPD Gastrointestinal History: Reports: GERD Genitourinary History: Reports: Prostate Disorder, Retention, Urinary Endocrine/Metabolic History: Reports: Hypothyroidism Oncologic (Cancer) History: Reports: Bladder - Past Surgical History Cardiovascular Surgical History: Reports: Pacer Musculoskeletal Surgical History: Reports: Hip Replacement Social & Family History - Family History Family Medical History: No Pertinent Family History - Caffeine Use Caffeine Use: Reports: Coffee, Soda ED ROS GENERAL - Review of Systems Review Of Systems: See Below Constitutional: Reports: No Symptoms HEENT: Reports: No Symptoms Respiratory: Reports: No Symptoms Cardiovascular: Reports: No Symptoms Endocrine: Reports: No Symptoms GI/Abdominal: Reports: No Symptoms : Reports: No Symptoms Musculoskeletal: Reports: No Symptoms Skin: Reports: No Symptoms Neurological: Reports: Dizziness Psychiatric: Reports: No Symptoms Hematologic/Lymphatic: Reports: No Symptoms Immunologic: Reports: No Symptoms ED EXAM, GENERAL - Physical Exam Exam: See Below Exam Limited By: No Limitations General Appearance: Alert, WD/WN, No Apparent Distress Ears: Normal External Exam, Normal Canal, Hearing Grossly Normal, Normal TMs Ear Exam: Bilateral Ear: Auricle Normal, Canal Normal, TM normal Nose: Normal Inspection, Normal Mucosa, No Blood Throat/Mouth: Normal Inspection, Normal Lips, Normal Teeth, Normal Gums, Normal Oropharynx, Normal Voice, No Airway Compromise Head: Atraumatic, Normocephalic Neck: Normal Inspection, Supple, Non-Tender, Full Range of Motion Respiratory/Chest: No Respiratory Distress, Lungs Clear, Normal Breath Sounds, No Accessory Muscle Use, Chest Non-Tender Cardiovascular: Normal Peripheral Pulses, Regular Rate, Rhythm, No Edema, No Gallop, No JVD, No Murmur, No Rub GI/Abdominal: Normal Bowel Sounds, Soft, Non-Tender, No Organomegaly, No Distention, No Abnormal Bruit, No Mass Back Exam: Normal Inspection, Full Range of Motion, NT Extremities: Normal Inspection, Normal Range of Motion, Non-Tender, Normal Capillary Refill, No Pedal Edema Neurological: Alert, Oriented, CN II-XII Intact, Normal Cognition, Normal Gait, Normal Reflexes, No Motor/Sensory Deficits Psychiatric: Normal Affect, Normal Mood Skin Exam: Warm, Dry, Intact, Normal Color, No Rash Lymphatic: No Adenopathy #1 Interpretation EKG Date: 11/17/20 Time: 11:00 Rhythm: Other (v-paced) Rate (Beats/Min): 60 [place]: Normal P-Wave: Present QRS: Normal ST-T: Normal QT: Normal Comparison: No Change EKG Interpretation Comments: No noted ST elevation or depression. Unchanged from last EKG 04/13/2020 Course - Vital Signs Text/Narrative:: Review of ekg which is unchanged from last. Troponin normal Blood pressure within normal range, no orthostatic, improved symptoms Last Recorded V/S: Last Vital Signs Temp 35.9 C L 11/17/20 10:05 Pulse 61 11/17/20 11:45 Resp 16 11/17/20 11:45 BP 113/62 11/17/20 11:45 Pulse Ox 97 11/17/20 11:45 - Orders/Labs/Meds Labs: Laboratory Tests 11/17/20 Range/Units 10:55 Sodium 141 (136-145) mmol/L Potassium 4.5 (3.5-5.1) mmol/L Chloride 105 (98-107) mmol/L Carbon Dioxide 32 (21-32) mmol/L Anion Gap 8.5 (5-15) mmol/L BUN 23 H (7-18) mg/dL Creatinine 1.3 (0.70-1.30) mg/dL Est Cr Clr Drug Dosing TNP Estimated GFR (MDRD) 53 Glucose 89 (70-99) mg/dL Calcium 8.4 L (8.5-10.1) mg/dL Corrected Calcium 9.12 (8.5-10.1) mg/dL Magnesium 2.3 (1.8-2.4) mg/dL Total Bilirubin 0.4 (0.2-1.0) mg/dL AST 17 (15-37) U/L ALT 27 (16-63) U/L Alkaline Phosphatase 98 (46-116) U/L Troponin I High Sens 31 (<=76) ng/L Total Protein 6.2 L (6.4-8.2) g/dL Albumin 3.1 L (3.4-5.0) g/dL Globulin 3.1 Albumin/Globulin Ratio 1.00 Departure - Departure Time of Disposition: 12:03 Disposition: Home, Self-Care 01 Condition: Good Clinical Impression: Hypotension Qualifiers: Hypotension type: hypotension due to drug Qualified Code(s): I95.2 - Hypotension due to drugs Instructions: Hypotension, [id number] Referrals: Norris Gunn PA-C [Primary Care Provider] - Forms: ED Department Discharge Additional Instructions: 1. Stay well hydrated 2 Continue all medications 3. Follow up with solution make up operator or primary care if low blood pressure continues 4. EKG unchanged from prior, labwork normal. 5. Call if any questions or concerns. 6. Return to ED if worsening symptoms. Sepsis Event Note (ED) - Evaluation Sepsis Screening Result: No Definite Risk - Focused Exam Vital Signs: Vital Signs Temp Pulse Resp BP Pulse Ox 11/17/20 11:45 61 16 113/62 97 11/17/20 11:02 60 14 104/65 96 11/17/20 10:05 35.9 C L 61 16 95/55 L 97 - Problem List & Annotations (1) Hypotension SNOMED Code(s): 93869820 Code(s): I95.9 - HYPOTENSION, UNSPECIFIED Status: Acute Priority: Low Qualifiers: Hypotension type: hypotension due to drug Qualified Code(s): I95.2 - Hypotension due to drugs
[2020-11-17 11:22] LABS: CHLORIDE,CL 105 mmol/L (98-107); SODIUM,NA 141 mmol/L (136-145)
[2020-11-17 11:26] LABS: ANION GAP 8.5 mmol/L (5-15)
[2020-11-17 12:25] VITALS: BP 113/62; PULSE 61
== END 2020-11-17 12:03 | disposition home or self-care (01) ==
LOC: VM.ED 10:05
CPT/HCPCS: 36415; 80053; 83735; 84484; 93005; 93010; 99284; 99285-25

== ENCOUNTER 2022-06-02 16:53 | Emergency (ER) | payer MEDICARE, BC ==
[2022-06-02] MEDS ORDERED: Sodium Chloride 0.9% 1,000 ML IV SCH (17:30)
[2022-06-02 17:55] LABS: CHLORIDE,CL 103 mmol/L (98-107); SODIUM,NA 140 mmol/L (136-145)
[2022-06-02 17:56] LABS: ANION GAP 13.3 mmol/L (5-15); ESTIMATED GFR 47 mL/min (>=60)
[2022-06-02 18:17] LABS: RESPIRATORY SYNCYTIAL VIR NAA NEGATIVE (NEGATIVE)
[2022-06-02 18:20] LABS: CORONAVIRUS COVID-19 NAA POSITIVE (NEGATIVE)
[2022-06-02 19:01] VITALS: BP 115/65; PULSE 72
== END 2022-06-02 19:19 | disposition home or self-care (01) ==
LOC: VM.ED 16:53
DX: U07.1 COVID-19 (principal); I25.10 Atherosclerotic heart disease of native coronary artery without angina pectoris; I11.0 Hypertensive heart disease with heart failure; I50.9 Heart failure, unspecified; J44.9 Chronic obstructive pulmonary disease, unspecified; K21.9 Gastro-esophageal reflux disease without esophagitis; E03.9 Hypothyroidism, unspecified; Z95.0 Presence of cardiac pacemaker; Z79.82 Long term (current) use of aspirin; Z79.899 Other long term (current) drug therapy
CPT/HCPCS: 0241U; 36415; 71046; 80053; 81001; 83605; 85025; 87040; 93005; 96360; 96361; 99284; 99284-25; J7030

== ENCOUNTER 2022-06-03 13:57 | Emergency (ER) | payer MEDICARE, BC ==
[2022-06-03 21:47] VITALS: BP 103/78; PULSE 65
== END 2022-06-03 14:14 | disposition home or self-care (01) ==
LOC: VM.ED 13:57
DX: U07.1 COVID-19 (principal); I25.10 Atherosclerotic heart disease of native coronary artery without angina pectoris; I11.0 Hypertensive heart disease with heart failure; I50.9 Heart failure, unspecified; J44.9 Chronic obstructive pulmonary disease, unspecified; K21.9 Gastro-esophageal reflux disease without esophagitis; E03.9 Hypothyroidism, unspecified; Z79.899 Other long term (current) drug therapy; Z79.82 Long term (current) use of aspirin
CPT/HCPCS: 99283; 99284